=== PATIENT | female | born 1985 | race Caucasian/White ===

== ENCOUNTER 2016-11-18 10:00 | Inpatient (IN) | payer BC ==
[2016-11-18] MEDS ORDERED: Nalbuphine 20 MG/1 ML Amp IVPUSH PRN (14:46)
[2016-11-18] MEDS ORDERED: Ondansetron 4 MG/2 ML SDV IVPUSH PRN (14:46)
[2016-11-18] MEDS ORDERED: Lidocaine 1% 50 ML MDV INJECT ONE (14:46)
[2016-11-18] MEDS ORDERED: Sodium Chloride 0.9% 10 ML Syringe FLUSH PRN (14:46)
[2016-11-18] MEDS ORDERED: Oxytocin/Lactated Ringers 10 UNIT/1,000 ML BAG IV SCH ×2 (15:00)
[2016-11-18] MEDS: Misoprostol 25 MCG (1/4 of 100 MCG) Tab VAG SCH ×3 (15:28→21:54)
[2016-11-18] MEDS ORDERED: Ampicillin 2 GM in Sodium Chloride 0.9% 100 ML IV ONE (15:30)
--- NOTE | 2016-11-18 17:56 | PCM.LDHP ---
L&D History of Present Illness - General Date of Service: 11/18/16 Admit Problem/Dx: Patient Status Order with Admit Dx/Problem 11/18/16 14:46 Patient Status [ADT] Routine Admission Diagnosis/Problem Admission Diagnosis/Problem Source of Information: Patient, Other History Limitations: Reports: No Limitations - History of Present Illness Introduction:: History of present illness: Mila is a 30-year-old 1 para 0000 white female admitted from clinic for induction of labor. On 11/12/16 patient began complaining of increased swelling in her hands, feet and face along with right upper quadrant pain. Her blood pressures were borderline in the 130s/70s with 1 + protein in her urine. On 11/13/16, patient continued to complain of RUQ pain, BP 134/90, uric acid 6.2, 1+ protein, and reactive NST. Over the past weekend, she has complained of on and off headaches and blood pressures in the 140s/90s at home. She came into L&D and had her BP checked and did a 24-hour urine protein, which was negative. In the clinic today on 11/18/16, her BPs were in the 140s/80s, and she reports her RUQ pain has worsened to a 6 and is more sharp and stabbing in nature. 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 Last menstrual period was definite onset of 03/03/2016. Ultrasounds occurred at 9-1 weeks, 19-1 weeks, and 21-1 weeks, placing her at an JILL of 12/08/16 based on her last menstrual period. 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 Menses occur monthly every 26 days, with menarche occurring at age 14. course: First care visit on 05/05/16. Baby has been active and fundal height has been appropriate. Pre- weight was 146 lbs and current weight is 187, a gain of 41 lbs. Group B strep screen positive. Laboratory testing: Blood type AB positive. Antibody screen negative. Initial HGB 13.7 with platelets at 206,000. Rubella immune and RPR nonreactive. Urine showed mixed michell suggestive of contamination. Hepatitis B surface antigen and HIV assays negative. Chlamydia and gonorrhea screens were negative. Second trimester labs showed a HGB of 12.6 and platelet count of 149,000. One hour GTT was 88. Third trimester labs performed on 11/12/16 showed a HGB of 12.5, platelet count of 178,000, and positive Group B strep. Allergies: 1. Sulfa-nausea Medications: 1. tablets Past medical history: 1. induced hypertension (PIH) Past surgical history: 1. Breast reduction 10/2015 2. Colposcopy 2010-negative Family history: Significant for a brother with scoliosis. Social history: Patient is . 's name is Mario King. Lives in [place], [place]. Occasionally used alcohol before . No tobacco or illicit drug usage. Review of systems: Skin: No rashes Heart: no chest pain Lungs: no shortness of breath or cough Breasts: normal changes Abdomen: Reports right upper quadrant pain GI: no constipation or diarrhea Gu: no dysuria Musculoskeletal: swelling in distal extremities Neurologic: headaches over the past weekend, no vision changes Physical exam: Skin: no rashes HEENT: no lymphadenopathy Heart: normal rate and rhythm, no murmurs Lungs: clear to auscultation, good chest wall expansion Breast: deferred Abdomen: protuberant with , tenderness to palpation of RUQ below ribs in area of liver Cervix: 1+/80%/soft/-3 Extremities and neurological: 1+ edema, 3+ patellar reflexes - Related Data Allergies/Adverse Reactions: Allergies Allergy/AdvReac Type Severity Reaction Status Date / Time Sulfa (Sulfonamide Allergy Nausea Verified 11/18/16 16:47 Antibiotics) Home Medications: Home Meds Pnv No.122/Iron/Folic Acid [ Multi Tablet] 1 each PO DAILY 11/18/16 [ History] Past Medical History NETWORK SYSTEMS CONSULTANT History: Reports: , Other (See Below) Other OB/BYN History: 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 - Past Surgical History Female Surgical History: Reports: Breast Reduction, Other (See Below) Other Female Surgeries/Procedures: Colposcopy Social & Family History - Family History Family Medical History: Noncontributory - Tobacco Use Smoking Status *Q: Never Smoker Second Hand Smoke Exposure: No - Caffeine Use Caffeine Use: Reports: None - Recreational Drug Use Recreational Drug Use: No H&P Review of Systems - Review of Systems: Review Of Systems: See Below L&D Exam - Exam Exam: See Below - Vital Signs Vital Signs: Last Vital Signs Temp 98.7 F 11/18/16 14:35 Pulse 75 11/18/16 14:35 Resp 18 11/18/16 14:35 BP 143/89 H 11/18/16 14:35 Pulse Ox 100 11/18/16 14:35 Weight: 184 lb 12.8 oz - Patient Data Lab Results Last 24 hrs: Laboratory Results - last 24 hr 11/18/16 11/18/16 11/18/16 Range/Units 13:18 15:06 15:06 WBC 8.66 (3.98-10.04) K/mm3 RBC 4.23 (3.98-5.22) M/mm3 Hgb 12.5 (11.2-15.7) gm/L Hct 36.5 (34.1-44.9) % MCV 86.3 (79.4-94.8) fl MCH 29.6 (25.6-32.2) pg MCHC 34.2 (32.2-35.5) g/dl RDW Std Deviation 38.9 (36.4-46.3) fL Plt Count 146 L (182-369) K/mm3 MPV 11.9 (9.4-12.3) fl Neut % (Auto) 79.2 H (34.0-71.1) % Lymph % (Auto) 16.5 L (19.3-51.7) % [place] % (Auto) 3.8 L (4.7-12.5) % Eos % (Auto) 0.2 L (0.7-5.8) Baso % (Auto) 0.1 (0.1-1.2) % Neut # (Auto) 6.85 H (1.56-6.13) K/mm3 Lymph # (Auto) 1.43 (1.18-3.74) K/mm3 [place] # (Auto) 0.33 (0.24-0.36) K/mm3 Eos # (Auto) 0.02 L (0.04-0.36) K/mm3 Baso # (Auto) 0.01 (0.01-0.08) K/mm3 BUN 16 (7-18) mg/dL Creatinine 1.0 (0.55-1.02) mg/dL Est Cr Clr Drug Dosing 68.67 mL/min Estimated GFR (MDRD) > 60 (>60) mL/min Uric Acid 6.7 H (2.6-6.0) mg/dL AST 25 (15-37) U/L ALT 26 (14-59) U/L Lactate Dehydrogenase 195 (81-234) U/L Urine Color Yellow (Yellow) Urine Appearance Clear (Clear) Urine pH 6.0 (5.0-8.0) Ur Specific [place] 1.020 (1.005-1.030) Urine Protein Negative (Negative) Urine Glucose (UA) Negative (Negative) Urine Ketones Negative (Negative) Urine Occult Blood Negative (Negative) Urine Nitrite Negative (Negative) Urine Bilirubin Negative (Negative) Urine Urobilinogen 0.2 (0.2-1.0) Ur Leukocyte Esterase Negative (Negative) Result Diagrams: 11/18/16 15:06 11/18/16 15:06 Problem List Initiated/Reviewed/Updated: Yes Orders Last 24hrs: Active Orders 24 hr Category Date Time Status Patient Status [ADT] Routine ADT 11/18/16 14:46 Active Activity as Tolerated [RC] PFP Care 11/18/16 14:46 Active Antiembolic Devices [RC] .Routine Care 11/18/16 14:48 Active Communication Order [RC] ASDIRECTED Care 11/18/16 14:46 Active Communication Order [RC] ASDIRECTED Care 11/18/16 14:46 Active Communication Order [RC] ASDIRECTED Care 11/18/16 14:46 Active Communication Order [RC] ASDIRECTED Care 11/18/16 14:46 Active Notify Provider [RC] ASDIRECTED Care 11/18/16 14:46 Active Notify Provider [RC] ASDIRECTED Care 11/18/16 14:51 Active Notify Provider [RC] PFP Care 11/18/16 14:46 Active Notify Provider [RC] PRN Care 11/18/16 14:46 Active Peripheral IV Care [RC] . DIRECTED Care 11/18/16 14:46 Active VTE/DVT Education [RC] Care 11/18/16 14:48 Active Vital Signs [RC] Care 11/18/16 14:46 Active Regular Diet [DIET] Diet 11/18/16 Lunch Active Ampicillin 1 gm Med 11/18/16 19:30 Active Sodium Chloride 0.9% [Normal Saline] 100 ml IV Q4H Lactated Ringers [Ringers, Lactated] 1,000 ml Med 11/18/16 15:00 Active IV ASDIRECTED Misoprostol [Cytotec] Med 11/18/16 15:00 Active 25 mcg VAG Q3H Nalbuphine [Nubain] Med 11/18/16 14:46 Active 10 mg IVPUSH Q2H PRN Ondansetron [Zofran] Med 11/18/16 14:46 Active 4 mg IVPUSH Q4H PRN Oxytocin/Lactated Ringers [Pitocin in LR 10 Units/1,000 Med 11/18/16 15:00 Active ML] 10 unit in 1,000 ml IV .CONTINUOUS Oxytocin/Lactated Ringers [Pitocin in LR 10 Units/1,000 Med 11/18/16 15:00 Active ML] 10 unit in 1,000 ml IV TITRATE Sodium Chloride 0.9% [Saline Flush] Med 11/18/16 14:46 Active 10 ml FLUSH ASDIRECTED PRN DVT/VTE Prophylaxis Reflex [OM.PC] Routine Ot 11/18/16 14:48 Ordered Electronic Heart Tones Ext w TOCO [WOMSER] Ot 11/18/16 14:46 Ordered Routine Electronic Heart Tones Internal [WOMSER] Per Unit Ot 11/18/16 14:46 Ordered Routine PIH Panel [OM.PC] Stat [facility] 11/18/16 14:46 Ordered Peripheral IV Insertion Adult [OM.PC] Routine Ot 11/18/16 14:46 Ordered Peripheral IV Insertion Adult [OM.PC] Routine Ot 11/18/16 14:46 Ordered Resuscitation Status Routine Resus Stat 11/18/16 14:46 Ordered Medication Orders Ampicillin Sodium 1 gm/ Sodium (Chloride) 100 mls @ 200 mls/hr IV Q4H AAKASH Lactated Ringer's (Ringers, Lactated) 1,000 mls @ 100 mls/hr IV ASDIRECTED AAKASH Oxytocin/Lactated Ringer's (Pitocin In Lr 10 Units/1,000 Ml) 10 unit in 1,000 mls @ 500 mls/hr IV .CONTINUOUS AAKASH Oxytocin/Lactated Ringer's (Pitocin In Lr 10 Units/1,000 Ml) 10 unit in 1,000 mls @ 12 mls/hr IV TITRATE AAKASH; 2 MUNITS/MIN PRN Reason: Protocol Misoprostol (Cytotec) 25 mcg VAG Q3H AAKASH Stop: 11/18/16 21:01 Last Admin: 11/18/16 15:28 Dose: 25 mcg Nalbuphine HCl (Nubain) 10 mg IVPUSH Q2H PRN PRN Reason: Pain (moderate 4-6) Ondansetron HCl (Zofran) 4 mg IVPUSH Q4H PRN PRN Reason: Nausea/Vomiting Sodium Chloride (Saline Flush) 10 ml FLUSH ASDIRECTED PRN PRN Reason: Keep Vein Open Assessment/Plan Comment:: Assessment: 1. 30-year-old female at 37-1 week with an JILL of 12/08/16 based on her LMP admitted for induction of labor from clinic due to -induced hypertension. 2. Group B strep positive Plan: 1. Induction of labor with oxytocin and cervical ripening with cytotec 2. Ampicillin for Group B strep 3. Patient plans to bottle feed 4. Monitor BPs and signs of worsening RUQ pain, headaches, vision changes 5. PIH panel ordered
[2016-11-18] MEDS: Ampicillin 1 GM in Sodium Chloride 0.9% 100 ML IV SCH ×2 (19:42→23:40)
[2016-11-18] MEDS ORDERED: fentaNYL 100 MCG/2 ML SDV EPIDUR PRN (21:54)
[2016-11-18] MEDS ORDERED: diphenhydrAMINE 50 MG/ML SDV IVPUSH PRN (21:54)
[2016-11-18] MEDS ORDERED: ePHEDrine 50 MG/ML SDV IVPUSH PRN (21:54)
[2016-11-18] MEDS ORDERED: Bupivacaine/fentaNYL/NS 100 ML Bag EPIDUR SCH (22:00)
--- NOTE | 2016-11-18 23:00 | PCM.PREANE ---
Preanesthetic Assessment - Anesthesia/Transfusion/Family Hx Anesthesia History: Prior Anesthesia Without Reaction Family History of Anesthesia Reaction: No Transfusion History: No Prior Transfusion(s) - Review of Systems General: No Symptoms Pulmonary: No Symptoms Cardiovascular: No Symptoms Gastrointestinal: No Symptoms Neurological: No Symptoms Other: Reports: None - Physical Assessment Pulse: 64 O2 Sat by Pulse Oximetry: 100 Respiratory Rate: 18 Blood Pressure: 151/88 Vital Signs: Last Vital Signs Temp 98.7 F 11/18/16 14:35 Pulse 75 11/18/16 14:35 Resp 18 11/18/16 14:35 BP 143/89 H 11/18/16 14:35 Pulse Ox 100 11/18/16 14:35 Height: 5 ft 3 in Weight: 83.824 kg ASA Class: 2 Mental Status: Alert & Oriented x3 Airway Class: Mallampati = 1 Dentition: Reports: Normal Dentition Thyro-Mental Finger Breadths: 3 Mouth Opening Finger Breadths: 3 ROM/Head Extension: Full Lungs: Clear to Auscultation, Normal Respiratory Effort Cardiovascular: Regular Rate, Regular Rhythm - Lab Values: Laboratory Last Values WBC 8.66 K/mm3 (3.98-10.04) 11/18/16 15:06 RBC 4.23 M/mm3 (3.98-5.22) 11/18/16 15:06 Hgb 12.5 gm/L (11.2-15.7) 11/18/16 15:06 Hct 36.5 % (34.1-44.9) 11/18/16 15:06 MCV 86.3 fl (79.4-94.8) 11/18/16 15:06 MCH 29.6 pg (25.6-32.2) 11/18/16 15:06 MCHC 34.2 g/dl (32.2-35.5) 11/18/16 15:06 RDW Std Deviation 38.9 fL (36.4-46.3) 11/18/16 15:06 Plt Count 146 K/mm3 (182-369) L 11/18/16 15:06 MPV 11.9 fl (9.4-12.3) 11/18/16 15:06 Neut % (Auto) 79.2 % (34.0-71.1) H 11/18/16 15:06 Lymph % (Auto) 16.5 % (19.3-51.7) L 11/18/16 15:06 [place] % (Auto) 3.8 % (4.7-12.5) L 11/18/16 15:06 Eos % (Auto) 0.2 (0.7-5.8) L 11/18/16 15:06 Baso % (Auto) 0.1 % (0.1-1.2) 11/18/16 15:06 Neut # (Auto) 6.85 K/mm3 (1.56-6.13) H 11/18/16 15:06 Lymph # (Auto) 1.43 K/mm3 (1.18-3.74) 11/18/16 15:06 [place] # (Auto) 0.33 K/mm3 (0.24-0.36) 11/18/16 15:06 Eos # (Auto) 0.02 K/mm3 (0.04-0.36) L 11/18/16 15:06 Baso # (Auto) 0.01 K/mm3 (0.01-0.08) 11/18/16 15:06 BUN 16 mg/dL (7-18) 11/18/16 15:06 Creatinine 1.0 mg/dL (0.55-1.02) 11/18/16 15:06 Est Cr Clr Drug Dosing 68.67 mL/min 11/18/16 15:06 Estimated GFR (MDRD) > 60 mL/min (>60) 11/18/16 15:06 Uric Acid 6.7 mg/dL (2.6-6.0) H 11/18/16 15:06 AST 25 U/L (15-37) 11/18/16 15:06 ALT 26 U/L (14-59) 11/18/16 15:06 Lactate Dehydrogenase 195 U/L (81-234) 11/18/16 15:06 Urine Color Yellow (Yellow) 11/18/16 13:18 Urine Appearance Clear (Clear) 11/18/16 13:18 Urine pH 6.0 (5.0-8.0) 11/18/16 13:18 Ur Specific [place] 1.020 (1.005-1.030) 11/18/16 13:18 Urine Protein Negative (Negative) 11/18/16 13:18 Urine Glucose (UA) Negative (Negative) 11/18/16 13:18 Urine Ketones Negative (Negative) 11/18/16 13:18 Urine Occult Blood Negative (Negative) 11/18/16 13:18 Urine Nitrite Negative (Negative) 11/18/16 13:18 Urine Bilirubin Negative (Negative) 11/18/16 13:18 Urine Urobilinogen 0.2 (0.2-1.0) 11/18/16 13:18 Ur Leukocyte Esterase Negative (Negative) 11/18/16 13:18 - Allergies Allergies/Adverse Reactions: Allergies Allergy/AdvReac Type Severity Reaction Status Date / Time Sulfa (Sulfonamide Allergy Nausea Verified 11/18/16 16:47 Antibiotics) - Blood Blood Available: No - Acknowledgements Anesthesia Type Planned: Epidural Pt an Appropriate Candidate for the Planned Anesthesia: Yes Alternatives and Risks of Anesthesia Discussed w Pt/Guardian: Yes Pt/Guardian Understands and Agrees with Anesthesia Plan: Yes PreAnesthesia Questionnaire Cardiovascular History: Reports: None Respiratory History: Reports: None Gastrointestinal History: Reports: GERD (with preg) 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: , Other (See Below) : 1 Para: 0 Other OB/BYN History: 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 Psychiatric History: Reports: None Oncologic (Cancer) History: Reports: None - Past Surgical History Female Surgical History: Reports: Breast Reduction, Other (See Below) Other Female Surgeries/Procedures: Colposcopy - SUBSTANCE USE Smoking Status *Q: Never Smoker Tobacco Use Within Last Twelve Months: No Second Hand Smoke Exposure: No Days Per Week of Alcohol Use: 0 Recreational Drug Use History: No - HOME MEDS Home Medications: Home Meds Pnv No.122/Iron/Folic Acid [ Multi Tablet] 1 each PO DAILY 11/18/16 [ History] - CURRENT (IN HOUSE) MEDS Current Meds: Current Medications Diphenhydramine HCl (Benadryl) 25 mg IVPUSH Q6H PRN PRN Reason: pruritis Ephedrine Sulfate (Ephedrine Sulfate) 5 mg IVPUSH ASDIRECTED PRN PRN Reason: Hypotension Fentanyl (Sublimaze) 100 mcg EPIDUR Q3H PRN PRN Reason: Pain Fentanyl/Bupivacaine HCl (Fentanyl/Bupivacaine/Ns 2 Mcg-0.125% 100 Ml) 100 ml EPIDUR ASDIRECTED AAKASH Ampicillin Sodium 1 gm/ Sodium (Chloride) 100 mls @ 200 mls/hr IV Q4H [facility] Last Admin: 11/18/16 19:42 Dose: 200 mls/hr Lactated Ringer's (Ringers, Lactated) 1,000 mls @ 100 mls/hr IV ASDIRECTED AAKASH Oxytocin/Lactated Ringer's (Pitocin In Lr 10 Units/1,000 Ml) 10 unit in 1,000 mls @ 500 mls/hr IV .CONTINUOUS AAKASH Oxytocin/Lactated Ringer's (Pitocin In Lr 10 Units/1,000 Ml) 10 unit in 1,000 mls @ 12 mls/hr IV TITRATE AAKASH; 2 MUNITS/MIN PRN Reason: Protocol Nalbuphine HCl (Nubain) 10 mg IVPUSH Q2H PRN PRN Reason: Pain (moderate 4-6) Ondansetron HCl (Zofran) 4 mg IVPUSH Q4H PRN PRN Reason: Nausea/Vomiting Sodium Chloride (Saline Flush) 10 ml FLUSH ASDIRECTED PRN PRN Reason: Keep Vein Open Discontinued Medications Ampicillin Sodium 2 gm/ Sodium (Chloride) 100 mls @ 200 mls/hr IV ONETIME ONE Stop: 11/18/16 15:59 Last Admin: 11/18/16 15:27 Dose: 200 mls/hr Lidocaine HCl (Xylocaine 1%) 20 ml INJECT ONETIME ONE Stop: 11/18/16 14:47 Misoprostol (Cytotec) 25 mcg VAG Q3H [facility] Stop: 11/18/16 21:01 Last Admin: 11/18/16 21:54 Dose: Not Given
[2016-11-19] MEDS: Lactated Ringers 1,000 ML IV SCH ×3 (01:15→06:42)
[2016-11-19] MEDS: Ampicillin 1 GM in Sodium Chloride 0.9% 100 ML IV SCH ×3 (03:48→13:18)
[2016-11-19] MEDS ORDERED: Bupivacaine 0.5% 30 ML SDV ONE (08:32)
--- NOTE | 2016-11-19 08:41 | PCM.SN ---
- Free Text/Narrative Note: Giancarlo is 30-year-old 1 para 0 who is at 37-2/7 weeks gestational age , admitted yesterday for induction of labor because of preeclampsia. This morning patient began having late decelerations on a regular basis. This despite contractions, objectively evaluated with an intrauterine pressure catheter, that were less than optimal. She is on Pitocin 5 mm units per minute. Cervix is 4+ centimeters, 90% effaced, 0 station, -1, soft and anterior. Intrauterine pressure transducer was placed as well as a scalp electrode. Decision made to proceed with primary section to affect delivery because of nonreassuring heart tones which is suspected to be due to uteroplacental insufficiency. In light of the fact that she has many hours of labor left to go to achieve complete cervical dilation and delivery feel that her by section is warranted. The procedure, risks, benefits, follow-up and alternatives of care discussed in detail the patient and her . They appear to understand and wish to proceed. Consent is signed.
[2016-11-19] MEDS ORDERED: Metoclopramide 10 MG/2 ML SDV IVPUSH ONE ×2 (08:42→21:55)
[2016-11-19] MEDS ORDERED: ceFAZolin 2 GM in Premix Bag 1 BAG IV ONE (08:42)
[2016-11-19] MEDS ORDERED: Citric Acid/Sodium Citrate Solution 30 ML Cup PO ONE (08:42)
[2016-11-19] MEDS ORDERED: Ondansetron 4 MG/2 ML SDV ONE (08:53)
[2016-11-19] MEDS ORDERED: Oxytocin 10 Units/1 ML SDV ONE (08:53)
[2016-11-19] MEDS ORDERED: Sodium Bicarbonate 8.4% 50 MEQ/50 ML SDV ONE (08:54)
[2016-11-19] MEDS ORDERED: ceFAZolin 1 GM Vial ONE (08:54)
[2016-11-19] MEDS ORDERED: Lidocaine 2% with EPINEPHrine 1:200,000 20 ML SDV ONE (08:54)
[2016-11-19] MEDS ORDERED: Morphine PF 10 MG/10 ML SDV ONE (09:34)
[2016-11-19] MEDS ORDERED: Meperidine PF 50 MG/ML Syringe ONE (09:36)
[2016-11-19] MEDS ORDERED: Ketorolac 30 MG/ML SDV ONE (09:49)
--- NOTE | 2016-11-19 10:00 | PCM.POSTAN ---
POST ANESTHESIA ASSESSMENT - MENTAL STATUS Mental Status: Alert, Oriented - VITAL SIGNS Pulse Rate: 76 SaO2: 98 Resp Rate: 16 Blood Pressure: 117/77 Temperature: 37.2 C - RESPIRATORY Respiratory Status: Respiratory Rate WNL, Airway Patent, O2 Saturation Stable - CARDIOVASCULAR CV Status: Pulse Rate WNL, Blood Pressure Stable - GASTROINTESTINAL GI Status: No Symptoms - PAIN Pain Score: 0 - POST OP HYDRATION Hydration Status: Adequate & Stable
--- NOTE | 2016-11-19 10:00 | PCM.OPNOTE ---
- General Post-Op/Procedure Note Date of Surgery/Procedure: 11/19/16 Operative Procedure(s): Primary lower uterine segment transverse section through Pfannenstiel skin incision Findings: Uterus tubes and ovaries consistent with term pregnancynormal in appearance. Baby in vertex presentation, amniotic fluid clear. Placenta looked normal the umbilical cord had 3 vessels. Cervix is approximately 4+ dilated Pre Op Diagnosis: 1. 37-2/7 week intrauterine . 2. Preeclampsia. 3. Nonreassuring heart tones Post-Op Diagnosis: Same with delivery of a viable, forrest, 5 lbs. 12 oz. female with Apgars of 8 and 9 at 0918 hrs. Anesthesia Technique: Epidural Other Anesthesia Type: Marcaine 0.5%20 mL local Primary Surgeon: Yon Mendez Secondary Surgeon: Pedro Deshpande Anesthesia Provider: Jose Baugh Fluid Replacement, Intraop: 800 Output, Urine Amount: 45 EBL in mLs: 200 Drain/Tube Comments:: Indwelling bladder catheter Complications: None Condition: Good Free Text/Narrative:: surgery duration: 30 minutes Procedure: Patient was transferred the room and placed in a sitting position. Patient already had an epidural in place. This was bolstered anesthetic effect. After confirmation of adequate anesthesia patient was placed in a supine position with a wedge under her right side to facilitate left lateral positioning. The patient was prepped and draped in usual fashion, [place] catheter was already placed . The anesthetic was checked and found to be adequate. The Pfannenstiel skin incision was then made carried down to skin subcutaneous and fascial layers. The fascia was then undermined superiorly and inferiorly to allow for adequate operating room the recti muscles midline and preperitoneal fat was bluntly dissected. Peritoneal cavity was entered longitudinally. The vesicouterine peritoneum was then incised transversely and bladder flap was developed. Myometrium was incised transversely to the level of the amniotic sac. This incision was extended bilaterally in a blunt fashion. The amniotic sac was then ruptured resulting clear amniotic fluid. A hand is placed and low uterine segment and the baby's head was brought forth through the incision. The baby was completely delivered using fundal pressure in a routine fashion. The nose and mouth were bulb suctioned. Babys cord was clamped x2 cut and baby was handed off to attending industrial millwright Dr Stone. Placenta was expressed after cord blood was obtained. Uterus was then exteriorized to allow for easier closure. The cervix was assessed and found to be dilated adequately to allow egress of blood. The uterus was closed in 2 layers. The first layer a running locked suture of 0 Monocryl, the second layer a running locked vertical mattress suture of 0 Monocryl. [id number] suture was placed at the left incision to control 1 bleeder. Hemostasis confirmed at this time. Sponge instrument needle counts are correct. The uterus was returned to the abdominal cavity and lateral gutters were cleared of blood. Once again sponge needle counts are correct. The anterior abdominal wall was closed with a #1 PDS suture from angle to angle. The subcutaneous area was found to be free of any bleeders. Skin was closed with a running subcuticular stitch of 3-0 Monocryl in a vertical mattress suture fashion using a Ousmane needle. Prineo mesh/glue was then applied to further approximate the incision. It should be noted that patient received 2 g of Ancef preoperatively for infection prophylaxis and had Pitocin infused after delivery of the placenta to facilitate uterine contraction. She also had sequential compression stockings in place for DVT prophylaxis. Patient was discharged from the operating room in satisfactory condition.
[2016-11-19] MEDS ORDERED: Ondansetron 4 MG/2 ML SDV IVPUSH PRN (10:02)
[2016-11-19] MEDS ORDERED: Meperidine PF 50 MG/ML Syringe IVPUSH PRN (10:02)
[2016-11-19] MEDS ORDERED: fentaNYL 100 MCG/2 ML SDV IVPUSH PRN (10:02)
[2016-11-19] MEDS ORDERED: Acetaminophen/oxyCODONE 325-5 MG Tab PO PRN (12:13)
[2016-11-19] MEDS ORDERED: ePHEDrine 50 MG/ML SDV IVPUSH PRN (12:13)
[2016-11-19] MEDS ORDERED: Lactated Ringers 1,000 ML IV SCH (12:13)
[2016-11-19] MEDS ORDERED: Ondansetron 4 MG/2 ML SDV IV PRN (12:13)
[2016-11-19] MEDS ORDERED: Naloxone 0.4 MG/ML SDV IVPUSH PRN (12:13)
[2016-11-19] MEDS ORDERED: Lanolin 100% Cream 7 GM Tube TOP PRN (12:13)
[2016-11-19] MEDS ORDERED: Magnesium Sulfate/Water 100 ML ONE (12:42)
[2016-11-19] MEDS ORDERED: Magnesium Sulfate/Water 40 GM/1,000 ML BAG ONE (12:43)
[2016-11-19] MEDS ORDERED: Magnesium Sulfate/Water 4 GM in Premix Bag 1 BAG IV ONE (13:00)
[2016-11-19] MEDS: Magnesium Sulfate/Water 40 GM/1,000 ML BAG IV SCH (13:10)
[2016-11-19] MEDS: Labetalol 100 MG Tab PO SCH ×2 (13:15→21:13)
[2016-11-19] MEDS: Simethicone 80 MG Tab.Chew PO SCH ×3 (13:16→22:31)
[2016-11-19] MEDS: diphenhydrAMINE 50 MG/ML SDV IVPUSH PRN ×2 (15:29→21:16)
[2016-11-19] MEDS: Ibuprofen 800 MG Tab PO SCH (17:17)
[2016-11-19] MEDS ORDERED: Bupivacaine 0.25% 10 ML SDV ONE (22:22)
[2016-11-20] MEDS: Ibuprofen 800 MG Tab PO SCH ×3 (01:04→19:40)
[2016-11-20] MEDS ORDERED: Lactated Ringers 1,000 ML ONE (01:59)
--- NOTE | 2016-11-20 07:45 | PCM48HPAN ---
Post Anesthesia Note - EVALUATION WITHIN 48HRS OF ANESTHETIC Vital Signs in Normal Range: Yes Patient Participated in Evaluation: Yes Respiratory Function Stable: Yes Airway Patent: Yes Cardiovascular Function Stable: Yes Hydration Status Stable: Yes Pain Control Satisfactory: Yes Nausea and Vomiting Control Satisfactory: Yes Mental Status Recovered: Yes
[2016-11-20] MEDS: Simethicone 80 MG Tab.Chew PO SCH ×4 (09:42→21:03)
[2016-11-20] MEDS: Labetalol 100 MG Tab PO SCH ×2 (09:44→21:01)
[2016-11-20] MEDS: Magnesium Sulfate/Water 40 GM/1,000 ML BAG IV SCH (10:39)
[2016-11-20] MEDS: Lactated Ringers 1,000 ML IV SCH (13:07)
--- NOTE | 2016-11-20 15:16 | PCM.SN ---
- Free Text/Narrative Note: note: Subjective: - Appropriate amount of lochia - Voiding and ambulating well - No headaches, (+) dizziness - Remains on labetalol and magnesium - Total intake 1720, output 2450 Objective: - VS: T 98.2, BP 121/87, P 75 - Lungs: clear breath sounds all lung escalona - Cardiovascular: regular rate and rhythm, no murmurs appreciated - Abdomen: uterine fundus located at umbilicus, firm and nontender, dressing and incision clean, dry, and intact - Extremities: 1+ edema, hyperactive DTRs 3+ at patella, no calf pain or tenderness, negative clonus, wearing SCDs - Labs: WBC 9.06, HGB 10.8, PLT 115,000, Magnesium 6.5 Assessment: - 30-year-old 1, now para 1001 s/p POD #1 who is doing well. - Currently bottle feeding - Remains on magnesium sulfate, no toxicity; (+) diuresis, BP stable on labetalol Plan: - Routine care - Continue magnesium sulfate - Continue to monitor intake and output - Continue SCDs
[2016-11-20] MEDS ORDERED: Bisacodyl 10 MG Supp RECTAL PRN (16:06)
[2016-11-20] MEDS: Docusate Sodium 100 MG Cap PO PRN (21:03)
[2016-11-21] MEDS: Lactated Ringers 1,000 ML IV SCH ×2 (01:22→13:09)
[2016-11-21] MEDS: Ibuprofen 800 MG Tab PO SCH ×3 (03:43→18:53)
[2016-11-21] MEDS: Labetalol 100 MG Tab PO SCH ×2 (08:07→21:00)
[2016-11-21] MEDS: Simethicone 80 MG Tab.Chew PO SCH ×4 (08:07→23:34)
--- NOTE | 2016-11-21 09:07 | PCM.SN ---
- Free Text/Narrative Note: note Subjective: - Patient overall doing well and feels that she is improving from yesterday - Patient is ambulating and was able to shower without difficulty, shortness of breath or dizziness this morning - Pain is well controlled on medications - Tolerating regular diet without difficulty - Voiding without difficulty and passing flatus - Bottlefeeding infant with having some difficulty with spitting up small amount of formula Objective: VS T 36.8 HR 70 BP 122/90 Last 24 in 4020 mL Last 24 out 1200 mL General: No acute distress, well-appearing Heart: Regular rate and rhythm, no murmurs, rubs or gallops Lungs: Clear to auscultation bilaterally Abdomen: Soft, nondistended, minimal appropriate tenderness, fundus 1 fingerbreadth below umbilicus, incision healing well with glue in place, clean dry and intact Extremities: 3+ pitting edema on feet bilaterally to lower shins, 1+ edema on shins to knees, 3+ DTRs bilateral at knees, no calf pain or tenderness, SCDs are in place Magnesium level: 6.2 Assessment: - 30-year-old 1, now para 1001 s/p POD #2 who is doing well and improving. - Currently bottle feeding - Remains on magnesium sulfate, no toxicity; continues to have good diuresis, BP stable on labetalol Plan: - Routine care - Continue magnesium sulfate, will recently assess later today - Continue to monitor intake and output - Continue SCDs - Anticipate discharge on postop day #3 or 4 Bryon Powell M.D. 9:16 AM 11/21/2016
[2016-11-21] MEDS: Magnesium Sulfate/Water 40 GM/1,000 ML BAG IV SCH (11:28)
--- NOTE | 2016-11-21 12:36 | PCM.SN ---
- Free Text/Narrative Note: Magnesium progress note Subjective: - Patient reports new onset mild headache this morning after she ate some ice cream. States it is getting better. Denies any vision changes or right upper quadrant pain. - Continues to be ambulating well without any problems, denies any dizziness with ambulation Objective: VS P 70 BP 143/107 RR 16 General: No acute distress, well-appearing Heart: Regular rate and rhythm, no murmurs, rubs or gallops. Lungs: Clear to auscultation bilaterally Extremities: 3+ pitting edema in feet 2 lotions, 3+ DTRs bilaterally at patella Magnesium level: 6.4 Assessment: 30-year-old G1 now P1001 status post section, postop day #2 with continued elevated blood pressures and reflexes on magnesium and labetalol Plan: - Continue on magnesium at this time. We'll continue to reassess for improvement in blood pressure and other signs of preeclampsia. Bryon Powell M.D. 12:31 PM 11/21/2016
--- NOTE | 2016-11-21 17:39 | PCM.SN ---
- Free Text/Narrative Note: Magnesium progress note Subjective: - Patient reports mild headache from this morning is resolved. Denies any vision changes or right upper quadrant pain. - Continues to be ambulating well without any problems, denies any dizziness with ambulation Objective: VS T 37.7 P 68 BP 122/90 RR 16 General: No acute distress, well-appearing Heart: Regular rate and rhythm, no murmurs, rubs or gallops. Lungs: Clear to auscultation bilaterally Extremities: 2+ pitting edema in feet to shins, 3+ DTRs bilaterally at patella unchanged from previous exams Magnesium level: 6.2 Assessment: 30-year-old G1 now P1001 status post section, postop day #2 with improved blood pressures and stable reflexes on magnesium and labetalol Plan: - Routine care - Discontinue magnesium at this time. Saline lock. Continue close monitoring of vitals and I/O Bryon Powell M.D. 4:36 PM 11/21/2016
[2016-11-21] MEDS ORDERED: Sodium Chloride 0.9% 10 ML Syringe FLUSH PRN (17:42)
[2016-11-22] MEDS: Ibuprofen 800 MG Tab PO SCH ×2 (04:00→08:09)
[2016-11-22] MEDS: Docusate Sodium 100 MG Cap PO PRN (05:07)
--- NOTE | 2016-11-22 05:30 | PCM.DCSUM1 ---
Discharge Summary - Hospital Course Brief History: Admitted for IOL for pre-ecclampsia 11-18-16. Cat 2 tracing and 4 cm so decision for 11-19-16. Some severe bps after. Started on magnesium through 11-21-16. By POD3 doing great, normal bps with some mild range. Decision to discharge home. - Discharge Data Discharge Date: 11/22/16 Discharge Disposition: Home, Self-Care 01 Condition: Good - Patient Summary/Data Operative Procedure(s) Performed: Primary lower uterine segment transverse section through Pfannenstiel skin incision Complications: none Hospital Course: Admitted for induction of labor. Progressed adequately but began having some late decelerations. Given only 4 cm and likely uteroplacental insufficiency decision for on 11-19-16. 3 hours postop began having worsening blood pressures so magnesium initiated. Eventually improved bps and UOP so magnesium discontinued on evening of 11-21-16. Stable after and decision to discharge home. - Patient Instructions Diet: Usual Diet as Tolerated Activity: No Strenuous Activities Driving: Do Not Drive Showering/Bathing: May Shower Wound/Incision Care: Keep Operative Site/Wound Site Clean and Dry, Change Dressing Daily, Do NOT Change Dressing Notify Provider of: Fever, Increased Pain, Swelling and Redness, Drainage, Nausea and/or Vomiting - Discharge Plan Home Medications: Home Meds Pnv No.122/Iron/Folic Acid [ Multi Tablet] 1 each PO DAILY 11/18/16 [ History] Referrals: Yon Mendez MD [Physician] - (Thursday or Thursday for blood pressure check.) - Discharge Summary/Plan Comment DC Time >30 min.: No - General Info Date of Service: 11/22/16 - Review of Systems General: Reports: No Symptoms HEENT: Reports: No Symptoms Pulmonary: Reports: No Symptoms Cardiovascular: Reports: No Symptoms Gastrointestinal: Reports: No Symptoms Genitourinary: Reports: No Symptoms Musculoskeletal: Reports: No Symptoms Skin: Reports: No Symptoms Neurological: Reports: No Symptoms Psychiatric: Reports: No Symptoms - Patient Data Vitals - Most Recent: Last Vital Signs Temp 37.3 C 11/22/16 00:45 Pulse 82 11/22/16 00:45 Resp 14 11/22/16 00:45 BP 124/73 11/22/16 00:45 Pulse Ox 96 11/22/16 00:45 Weight - Most Recent: 83.824 kg I&O - Last 24 hours: Intake & Output 11/21/16 11/21/16 11/22/16 14:59 22:59 06:59 Intake Total 1580 1300 Output Total 1500 Balance 1580 -200 Lab Results - Last 24 hrs: Laboratory Results - last 24 hr 11/21/16 11/21/16 Range/Units 05:05 11:10 Magnesium 6.2 H 6.4 H (1.8-2.4) mg/dl Med Orders - Current: Current Medications Bisacodyl (Dulcolax) 10 mg RECTAL Q8HR PRN PRN Reason: Constipation Diphenhydramine HCl (Benadryl) 25 mg IVPUSH Q6H PRN PRN Reason: Itching or Nausea Last Admin: 11/19/16 21:16 Dose: 25 mg Docusate Sodium (Colace) 100 mg PO Q12H PRN PRN Reason: Constipation Last Admin: 11/22/16 05:07 Dose: 100 mg Emollient Ointment (Lansinoh Hpa) 0 gm TOP ASDIRECTED PRN PRN Reason: Sore Nipples Ephedrine Sulfate (Ephedrine Sulfate) 5 mg IVPUSH SEECOMMENT PRN PRN Reason: Other Ibuprofen (Motrin) 800 mg PO Q8H [facility] Last Admin: 11/22/16 04:00 Dose: 800 mg Labetalol HCl (Normodyne) 100 mg PO BID [facility] Last Admin: 11/21/16 21:00 Dose: 100 mg Naloxone HCl (Narcan) 0.1 mg IVPUSH SEECOMMENT PRN PRN Reason: Respiratory Depression Ondansetron HCl (Zofran) 4 mg IV Q4H PRN PRN Reason: Nausea/Vomiting Last Admin: 11/19/16 13:01 Dose: 4 mg Oxycodone/Acetaminophen (Percocet 325-5 Mg) 2 tab PO Q4H PRN PRN Reason: Pain (moderate 4-6) Simethicone (Simethicone) 80 mg PO PCBED [facility] Last Admin: 11/21/16 23:34 Dose: 80 mg Sodium Chloride (Saline Flush) 10 ml FLUSH ASDIRECTED PRN PRN Reason: Keep Vein Open Discontinued Medications Bupivacaine HCl (Marcaine 0.5%) Confirm Administered Dose 30 ml .ROUTE .STK-MED ONE Stop: 11/19/16 08:33 Last Admin: 11/19/16 09:15 Dose: 20 ml Cefazolin Sodium (Ancef) Confirm Administered Dose 2 gm .ROUTE .STK-MED ONE Stop: 11/19/16 08:55 Citric Acid/Sodium Citrate (Bicitra Solution) 30 ml PO ONETIME ONE Stop: 11/19/16 08:43 Last Admin: 11/19/16 08:51 Dose: 30 ml Diphenhydramine HCl (Benadryl) 25 mg IVPUSH Q6H PRN PRN Reason: pruritis Ephedrine Sulfate (Ephedrine Sulfate) 5 mg IVPUSH ASDIRECTED PRN PRN Reason: Hypotension Fentanyl (Sublimaze) 100 mcg EPIDUR Q3H PRN PRN Reason: Pain Last Admin: 11/19/16 01:59 Dose: 100 mcg Fentanyl (Sublimaze) 50 mcg IVPUSH Q5M PRN PRN Reason: Pain Stop: 11/19/16 12:30 Fentanyl/Bupivacaine HCl (Fentanyl/Bupivacaine/Ns 2 Mcg-0.125% 100 Ml) 100 ml EPIDUR ASDIRECTED AAKASH Last Admin: 11/19/16 01:59 Dose: 100 ml Ampicillin Sodium 2 gm/ Sodium (Chloride) 100 mls @ 200 mls/hr IV ONETIME ONE Stop: 11/18/16 15:59 Last Admin: 11/18/16 15:27 Dose: 200 mls/hr Ampicillin Sodium 1 gm/ Sodium (Chloride) 100 mls @ 200 mls/hr IV Q4H [facility] Last Admin: 11/19/16 13:18 Dose: Not Given Lactated Ringer's (Ringers, Lactated) 1,000 mls @ 100 mls/hr IV ASDIRECTED AAKASH Last Admin: 11/19/16 06:42 Dose: 100 mls/hr Oxytocin/Lactated Ringer's (Pitocin In Lr 10 Units/1,000 Ml) 10 unit in 1,000 mls @ 500 mls/hr IV .CONTINUOUS AAKASH Oxytocin/Lactated Ringer's (Pitocin In Lr 10 Units/1,000 Ml) 10 unit in 1,000 mls @ 12 mls/hr IV TITRATE AAKASH; 2 MUNITS/MIN PRN Reason: Protocol Last Titration: 11/19/16 06:00 Dose: 5 munits/min, 30 mls/hr Cefazolin Sodium/Dextrose 2 gm (/ Premix) 50 mls @ 100 mls/hr IV ONETIME ONE Stop: 11/19/16 09:11 Last Admin: 11/19/16 13:19 Dose: Not Given Lactated Ringer's (Ringers, Lactated) 1,000 mls @ 125 [facility] Stop: 11/19/16 20:12 Last Admin: 11/19/16 12:50 Dose: 125 mls/hr Magnesium Sulfate (Magnesium Sulfate 4 Gm In Water 100 Ml) Confirm Administered Dose 100 mls @ as directed .ROUTE .[facility] ONE Stop: 11/19/16 12:43 Last Admin: 11/19/16 15:14 Dose: Not Given Magnesium Sulfate (Magnesium Sulfate 40 Gm In Water 1000 Ml) Confirm Administered Dose 40 gm in 1,000 mls @ as directed .ROUTE .[facility] ONE Stop: 11/19/16 12:44 Last Admin: 11/19/16 13:16 Dose: Not Given Magnesium Sulfate 4 gm/ Premix 100 mls @ 400 mls/hr IV ONETIME ONE Stop: 11/19/16 13:14 Last Admin: 11/19/16 12:50 Dose: 400 mls/hr Magnesium Sulfate (Magnesium Sulfate 40 Gm In Water 1000 Ml) 40 gm in 1,000 mls @ 50 mls[facility]hr [facility] Last Admin: 11/21/16 11:28 Dose: 40 mls/hr Lactated Ringer's (Ringers, Lactated) Confirm Administered Dose 1,000 mls @ as directed .ROUTE .[facility] ONE Stop: 11/20/16 02:00 Last Admin: 11/20/16 11:33 Dose: Not Given Lactated Ringer's (Ringers, Lactated) 1,000 mls @ 85 mls[facility]hr [facility] Last Admin: 11/21/16 13:09 Dose: 85 mls/hr Ketorolac Tromethamine (Toradol) Confirm Administered Dose 30 mg .ROUTE .[facility] ONE Stop: 11/19/16 09:50 Lidocaine HCl (Xylocaine 1%) 20 ml INJECT ONETIME ONE Stop: 11/18/16 14:47 Last Admin: 11/19/16 13:19 Dose: Not Given Lidocaine/Epinephrine (Xylocaine-Mpf 2%-Epi 1:200,000) Confirm Administered Dose 20 ml .ROUTE .STK-MED ONE Stop: 11/19/16 08:55 Meperidine HCl (Demerol) Confirm Administered Dose 50 mg .ROUTE .STK-MED ONE Stop: 11/19/16 09:37 Meperidine HCl (Demerol) 12.5 mg IVPUSH ONETIME PRN PRN Reason: Shivering Stop: 11/19/16 12:30 Metoclopramide HCl (Reglan) 10 mg IVPUSH ONETIME ONE Stop: 11/19/16 08:43 Last Admin: 11/19/16 08:52 Dose: 10 mg Metoclopramide HCl (Reglan) 10 mg IVPUSH ONETIME ONE Stop: 11/19/16 21:56 Last Admin: 11/19/16 22:01 Dose: 10 mg Misoprostol (Cytotec) 25 mcg VAG Q3H AAKASH Stop: 11/18/16 21:01 Last Admin: 11/18/16 21:54 Dose: Not Given Morphine Sulfate (Duramorph Pf) Confirm Administered Dose 10 mg .ROUTE .STK-MED ONE Stop: 11/19/16 09:35 Nalbuphine HCl (Nubain) 10 mg IVPUSH Q2H PRN PRN Reason: Pain (moderate 4-6) Ondansetron HCl (Zofran) 4 mg IVPUSH Q4H PRN PRN Reason: Nausea/Vomiting Last Admin: 11/19/16 07:23 Dose: 4 mg Ondansetron HCl (Zofran) Confirm Administered Dose 4 mg .ROUTE .STK-MED ONE Stop: 11/19/16 08:54 Ondansetron HCl (Zofran) 4 mg IVPUSH ONETIME PRN PRN Reason: Nausea/Vomiting Stop: 11/19/16 12:30 Oxytocin (Pitocin) Confirm Administered Dose 20 unit .ROUTE .STK-MED ONE Stop: 11/19/16 08:54 Sodium Bicarbonate (Sodium Bicarbonate 8.4%) Confirm Administered Dose 50 meq .ROUTE .STK-MED ONE Stop: 11/19/16 08:55 Sodium Chloride (Saline Flush) 10 ml FLUSH ASDIRECTED PRN PRN Reason: Keep Vein Open - Exam General: Reports: Alert, Oriented HEENT: Reports: Pupils Equal, Pupils Reactive, EOMI, Mucous Membr. Moist/[place] Neck: Reports: Supple Lungs: Reports: Clear to Auscultation, Normal Respiratory Effort Cardiovascular: Reports: Regular Rate, Regular Rhythm GI/Abdominal Exam: Normal Bowel Sounds, Soft, Non-Tender, No Organomegaly, No Distention, No Abnormal Bruit, No Mass, Pelvis Stable (Female) Exam: Normal External Exam, Normal Speculum Exam, Normal Bimanual Exam Back Exam: Reports: Normal Inspection, Full Range of Motion Extremities: Normal Inspection, Normal Range of Motion, Non-Tender, No Pedal Edema, Normal Capillary Refill Skin: Reports: Warm, Dry, Intact Wound/Incisions: Reports: Healing Well Neurological: Reports: No New Focal Deficit Psy/Mental Status: Reports: Alert, Normal Affect, Normal Mood *Q Meaningful Use (DIS) - VTE *Q VTE Criteria *Q: - Stroke *Q Stroke Criteria *Q: - AMI *Q AMI Criteria *Q:
[2016-11-22] MEDS: Labetalol 100 MG Tab PO SCH (08:08)
[2016-11-22] MEDS: Simethicone 80 MG Tab.Chew PO SCH (08:08)
[2016-11-22 08:32] VITALS: BP 140/80
== END 2016-11-22 10:55 | disposition home or self-care (01) | DRG 540 ==
LOC: JD.WOMH 10:00 → JD.OB 14:19 → OBSVTOIN 11-19 09:18
PROVIDERS: ADMIT Obstetrics & Gynecology; ATTEND Obstetrics & Gynecology
PROC: 3E0P7GC Introduction of Other Therapeutic Substance into Female Reproductive, Via Natural or Artificial Opening (ICD-10-PCS; principal; 2016-11-19)
PROC: 10907ZC Drainage of Amniotic Fluid, Therapeutic from Products of Conception, Via Natural or Artificial Opening (ICD-10-PCS; 2016-11-19)
PROC: 10D00Z1 Extraction of Products of Conception, Low, Open Approach (ICD-10-PCS; 2016-11-19)
DX: O13.4 Gestational [pregnancy-induced] hypertension without significant proteinuria, complicating childbirth (principal); O14.94 Unspecified pre-eclampsia, complicating childbirth; O99.824 Streptococcus B carrier state complicating childbirth; O76 Abnormality in fetal heart rate and rhythm complicating labor and delivery; Z3A.37 37 weeks gestation of pregnancy; Z37.0 Single live birth; Z88.2 Allergy status to sulfonamides
CPT/HCPCS: 01967; 01968; 36415; 81003; 82565; 83615; 83735; 84450; 84460; 84520; 84550; 85025; 94762; A9270-GY; J0290; J0690; J1200; J1885; J2175; J2270; J2405; J2590; J2765; J3010; J3475; J7030; J7120

== ENCOUNTER 2019-05-16 02:21 | Inpatient (IN) | payer BC ==
[~2019-05-16 02:21] MED LIST: Bupivacaine 0.25% 10 ML SDV ONE
[2019-05-16] MEDS ORDERED: Ondansetron 4 MG/2 ML SDV IVPUSH PRN ×2 (04:03→06:40)
[2019-05-16] MEDS ORDERED: Sodium Chloride 0.9% 10 ML Syringe FLUSH PRN (04:03)
[2019-05-16] MEDS ORDERED: Acetaminophen 325 MG Tab PO ONE (04:05)
[2019-05-16] MEDS ORDERED: Oxytocin/Lactated Ringers 10 UNIT/1,000 ML BAG IV SCH ×2 (04:15)
[2019-05-16] MEDS ORDERED: ePHEDrine 50 MG/ML SDV IVPUSH PRN (06:40)
[2019-05-16] MEDS ORDERED: fentaNYL 100 MCG/2 ML SDV EPIDUR PRN (06:40)
--- NOTE | 2019-05-16 06:43 | PCM.PREANE ---
Preanesthetic Assessment - Anesthesia/Transfusion/Family Hx Anesthesia History: Prior Anesthesia Without Reaction Family History of Anesthesia Reaction: No Transfusion History: No Prior Transfusion(s) Intubation History: Unknown - Review of Systems General: No Symptoms Pulmonary: No Symptoms Cardiovascular: No Symptoms (History of preeclampsia: on ASA) Gastrointestinal: No Symptoms (GERD), Nausea Neurological: No Symptoms Other: Reports: None (History of bicornate uterus), Easy Bruising, Sinus Problem - Physical Assessment NPO Status Date: 05/16/19 NPO Status Time: 07:30 Vital Signs: Last Vital Signs Temp 36.9 C 05/16/19 02:31 Pulse 78 05/16/19 02:31 Resp 16 05/16/19 02:31 BP 118/83 05/16/19 02:31 Pulse Ox 98 05/16/19 02:31 Height: 1.6 m Weight: 83.007 kg ASA Class: 2 Mental Status: Alert & Oriented x3 Airway Class: Mallampati = 2 Dentition: Reports: Normal Dentition, Caries Thyro-Mental Finger Breadths: 3 Mouth Opening Finger Breadths: 3 ROM/Head Extension: Full Lungs: Clear to Auscultation, Normal Respiratory Effort Cardiovascular: Regular Rate, Regular Rhythm, No Murmurs - Lab Values: Laboratory Last Values WBC 10.51 K/mm3 (3.98-10.04) H 05/16/19 04:20 RBC 4.19 M/mm3 (3.98-5.22) 05/16/19 04:20 Hgb 12.1 gm/dl (11.2-15.7) 05/16/19 04:20 Hct 37.4 % (34.1-44.9) 05/16/19 04:20 MCV 89.3 fl (79.4-94.8) 05/16/19 04:20 MCH 28.9 pg (25.6-32.2) 05/16/19 04:20 MCHC 32.4 g/dl (32.2-35.5) 05/16/19 04:20 RDW Std Deviation 42.2 fL (36.4-46.3) 05/16/19 04:20 Plt Count 185 K/mm3 (182-369) 05/16/19 04:20 MPV 11.4 fl (9.4-12.3) 05/16/19 04:20 Neut % (Auto) 78.4 % (34.0-71.1) H 05/16/19 04:20 Lymph % (Auto) 15.9 % (19.3-51.7) L 05/16/19 04:20 [place] % (Auto) 4.7 % (4.7-12.5) 05/16/19 04:20 Eos % (Auto) 0.5 (0.7-5.8) L 05/16/19 04:20 Baso % (Auto) 0.2 % (0.1-1.2) 05/16/19 04:20 Neut # (Auto) 8.25 K/mm3 (1.56-6.13) H 05/16/19 04:20 Lymph # (Auto) 1.67 K/mm3 (1.18-3.74) 05/16/19 04:20 [place] # (Auto) 0.49 K/mm3 (0.24-0.36) H 05/16/19 04:20 Eos # (Auto) 0.05 K/mm3 (0.04-0.36) 05/16/19 04:20 Baso # (Auto) 0.02 K/mm3 (0.01-0.08) 05/16/19 04:20 Urine Color Yellow (Yellow) 05/16/19 02:28 Urine Appearance Clear (Clear) 05/16/19 02:28 Urine pH 6.0 (5.0-8.0) 05/16/19 02:28 Ur Specific [place] > or = 1.030 (1.005-1.030) 05/16/19 02:28 Urine Protein Negative (Negative) 05/16/19 02:28 Urine Glucose (UA) Negative (Negative) 05/16/19 02:28 Urine Ketones Negative (Negative) 05/16/19 02:28 Urine Occult Blood Negative (Negative) 05/16/19 02:28 Urine Nitrite Negative (Negative) 05/16/19 02:28 Urine Bilirubin Negative (Negative) 05/16/19 02:28 Urine Urobilinogen 0.2 (0.2-1.0) 05/16/19 02:28 Ur Leukocyte Esterase Negative (Negative) 05/16/19 02:28 Urine RBC 0-5 /hpf (0-5) 05/16/19 02:28 Urine WBC 0-5 /hpf (0-5) 05/16/19 02:28 Ur Squamous Epith Cells 0-5 /hpf (0-5) 05/16/19 02:28 Urine Bacteria Moderate /hpf (FEW) H 05/16/19 02:28 Urine Mucus Moderate /hpf (FEW) H 05/16/19 02:28 Blood Type AB POSITIVE 05/16/19 04:20 Gel Antibody Screen Negative 05/16/19 04:20 Above labs reviewed and noted and within acceptable ranges to proceed with epidural if desired. - Allergies Allergies/Adverse Reactions: Allergies Allergy/AdvReac Type Severity Reaction Status Date / Time Sulfa (Sulfonamide Allergy Nausea Verified 05/16/19 03:13 Antibiotics) - Anesthesia Plan Pre-Op Medication Ordered: None - Acknowledgements Anesthesia Type Planned: Epidural Pt an Appropriate Candidate for the Planned Anesthesia: Yes Alternatives and Risks of Anesthesia Discussed w Pt/Guardian: Yes Pt/Guardian Understands and Agrees with Anesthesia Plan: Yes PreAnesthesia Questionnaire - Past Health History Medical/Surgical History: Denies Medical/Surgical History Cardiovascular History: Reports: None Respiratory History: Reports: None Gastrointestinal History: Reports: GERD [employer] History: Reports: Other OB/BYN History: 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 Psychiatric History: Reports: None Endocrine/Metabolic History: Reports: Obesity/BMI 30+, Vitamin D Deficiency Hematologic History: Reports: Anemia Oncologic (Cancer) History: Reports: None - Past Surgical History Female Surgical History: Reports: Breast Reduction, Other (See Below) Other Female Surgeries/Procedures: Colposcopy - SUBSTANCE USE Smoking Status *Q: Never Smoker Second Hand Smoke Exposure: No Recreational Drug Use History: No - HOME MEDS Home Medications: Home Meds No122/Iron/Folic Acid [ Multi Tablet] 1 each PO DAILY 11/18/16 [History] Aspirin 81 mg PO DAILY 05/07/19 [History] Ferrous Sulfate [Iron] 325 mg PO DAILY 05/07/19 [History] - CURRENT (IN HOUSE) MEDS Current Meds: Current Medications Ephedrine Sulfate (Ephedrine Sulfate) 5 mg IVPUSH ASDIRECTED PRN PRN Reason: Hypotension Fentanyl (Sublimaze) 100 mcg EPIDUR Q3H PRN PRN Reason: Pain Fentanyl/Bupivacaine HCl (Fentanyl/Bupivacaine/Ns 2 Mcg-0.125% 100 Ml) 100 ml EPIDUR ASDIRECTED AAKASH Lactated Ringer's (Ringers, Lactated) 1,000 mls @ 100 mls/hr IV ASDIRECTED AAKASH Oxytocin/Lactated Ringer's (Pitocin In Lr 10 Units/1,000 Ml) 10 unit in 1,000 mls @ 12 mls/hr IV TITRATE AAKASH; Protocol Oxytocin/Lactated Ringer's (Pitocin In Lr 10 Units/1,000 Ml) 10 unit in 1,000 mls @ 500 mls/hr IV .CONTINUOUS AAKASH Ondansetron HCl (Zofran) 4 mg IVPUSH Q4H PRN PRN Reason: Nausea/Vomiting Ondansetron HCl (Zofran) 4 mg IVPUSH ONETIME PRN PRN Reason: Nausea/Vomiting Sodium Chloride (Saline Flush) 10 ml FLUSH ASDIRECTED PRN PRN Reason: Keep Vein Open Discontinued Medications Acetaminophen (Tylenol) 650 mg PO NOW ONE Stop: 05/16/19 04:06 Last Admin: 05/16/19 04:47 Dose: 650 mg
[2019-05-16] MEDS: Lactated Ringers 1,000 ML IV SCH ×4 (11:57→18:01)
[2019-05-16] MEDS: Bupivacaine/fentaNYL/NS 100 ML Bag EPIDUR SCH ×2 (12:20→21:30)
--- NOTE | 2019-05-16 13:09 | PCM.LDHP ---
L&D History of Present Illness - General Date of Service: 05/16/19 Admit Problem/Dx: Patient Status Order with Admit Dx/Problem 05/16/19 02:31 Patient Status [ADT] Routine 05/16/19 04:03 Patient Status [ADT] Routine Admission Diagnosis/Problem Admission Diagnosis/Problem 05/16/19 12:54 Mila is a 33-year-old 2 para 0101 white female at 38-0/7 weeks gestational age with an JILL of 05/30/2019 who is admitted in early active labor with progressive cervical change. Source of Information: Patient History Limitations: Reports: No Limitations - History of Present Illness Introduction:: Mila is a 33-year-old 2 para 0101 white female at 38-0/7 weeks gestational age with an JILL of 05/30/2019 who is admitted in early active labor with progressive cervical change. Patient began having contractions last evening and has progressed to contractions every 3-4 minutes. They're moderate in intensity. Her cervix is changed from 1-2 cm up to 3-4 cm. Bag gage is intact but is then ruptured artificially with resultant clear amniotic fluid. Heart tones are reassuring. Patient is interested in an epidural. She has a history of previous section done for nonreassuring heart tones. She had severe preeclampsia at that time the process of trial labor after section for attempt at vaginal after section has been discussed with patient on numerous occasions. The risks, benefits, limitations, follow-up, possible need for section are all discussed detail. She appears to understand, wishes to proceed and has signed a consent for trial of labor after section and possible repeat section. Pre-C- section labs have been performed and anesthesia and surgery have been made aware of her presence in labor and delivery. She will be continuously monitored during labor. 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 Patient had last menstrual period approximately 08/23/2018. Her is based upon a last menstrual period and supported by 2 other ultrasounds done on 11/01/2018 end 01/12/2019. Patient has regular cycles and was not using any control time conception. Previous delivery included a delivery of male infant 11/19/2016 at 36 weeks gestational age after 10 hours of labor. Baby weighed 5 lbs. 12 oz. was delivered by section done for nonreassuring heart tones at [facility]. Epidural was used. Child's name is Christopher history: Patient was seen for her first visit at approximately 10 weeks gestational age. She is seen on a regular basis. Weight gain was from 149 pounds up to 182 pounds for a 33 pound gain. Her vital signs and stable fundal height growth has been appropriate. Her group B strep screen is negative. She had decided to do a repeat section if not delivered by 05/27/2019. Because she has come in in active labor she would like to try a trial labor after section. Patient has a history of enlarged thyroid but is clinically euthyroid. Her EPDS score on 01/31/2019 was 4/30. She has been on baby aspirin throughout this because of her history of preeclampsia. She has had a history of thrombocytopenia. She also has a history of vitamin D deficiency and has been on vitamin D supplementation. Patient received her flu shot on 01/31/2019. She received her diphtheria pertussis and tetanus immunization on 04/21/2019. She is rubella immune. Laboratory testing and shows blood to be AB+ with a negative [place] screen. Hemoglobin at first visit was 15.0 and platelets 207,000. She is rubella immune. RPR is nonreactive. Hepatitis B surface antigen and HIV assays were both negative. Chlamydia and gonorrhea assays were both negative. TSH was normal at 2.167 on 03/29/2019. Second trimester labs show a hemoglobin of 11.5 g or deciliter and platelets at 180,000. Test was normal at 108. Follow-up CBC on 05/03/2019 showed a hemoglobin 11.8 g deciliter and platelets are 165,000. She is group B strep negative. Allergies: 1. Self which causes nausea Medications: 1. Aspirin 81 mg daily 2. vitamins daily 3. Ferrous sulfate 325 mg by mouth daily. Past medical history: 1. Preeclampsia with last F2. Abnormal Pap smear 2010 with normal colposcopy Past surgical history: 1. Breast reduction surgery October 2015 2. Primary section on 11/19/2016 Family history: Brother with scoliosis. Son with alopecia. Mother is alive and well but on medications for blood pressure. Father is alive and well but is a type II diabetic on medications for blood pressure also. Brothers alive and well on medications for high blood pressure. Paternal grandmother at age 89 for breast cancer. Paternal grandfather in his late 80s from a brain tumor. Paternal grandmother in her late 80s from Alzheimer's disease. Paternal grandfather in his late 80s from esophageal cancer. No family history of cancer otherwise. No bleeding or blood clotting problems, anesthesia or allergy related problems, or related issues. Social history: Patient is . She lives in [place], [place]. 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 She does not use any significant amounts alcohol, drugs or tobacco. Review of systems: In general patient has no complaints. Baby is active. Skin: Negative Lungs: No infectious symptoms or shortness of breath Cardiovascular: No chest pain or exercise intolerance Breasts: No lumps, changes in size, pain, dimpling, discharge or axillary or supraclavicular concerns. GI: Negative : Negative Musculoskeletal: Negative Neurological: Negative In general the patient is well-developed, well-nourished, pleasant female of stated age in no acute distress. Last evaluation: 05/12/2019 weight was 182 with a pregravid weight 149 pounds. Height was 5 feet 3 inches. Pregravid body mass index is 25.9. heart rate is 155 bpm. Skin is warm dry without lesions. HEENT, neck and back within normal limits. Lungs are clear with good breath sounds in all lung escalona. Cardiovascular exam shows regular and rhythm without murmurs. Breasts exam is not done at this time done first pelvis and found to be normal. Patient plans to breast-feed. Abdomen is gravid with last fundal height on 05/12/2019 at 38.5 cm. Baby in a presentation.. Genital exam per digital shows cervix to be 4 cm, 95% effaced, 0 station, anterior, clear amniotic fluid, cervix is soft in consistency. Extremities and neurological exam are grossly within normal limits. Pain Score: 7 - Related Data Allergies/Adverse Reactions: Allergies Allergy/AdvReac Type Severity Reaction Status Date / Time Sulfa (Sulfonamide Allergy Nausea Verified 05/16/19 03:13 Antibiotics) Home Medications: Home Meds No122/Iron/Folic Acid [ Multi Tablet] 1 each PO DAILY 11/18/16 [History] Aspirin 81 mg PO DAILY 05/07/19 [History] Ferrous Sulfate [Iron] 325 mg PO DAILY 05/07/19 [History] Past Medical History - Past Health History Medical/Surgical History: Denies Medical/Surgical History Cardiovascular History: Reports: None Respiratory History: Reports: None Gastrointestinal History: Reports: GERD CEPHALOMETRIC TRACER History: Reports: Other OB/BYN History: 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 Psychiatric History: Reports: None Endocrine/Metabolic History: Reports: Obesity/BMI 30+, Vitamin D Deficiency Hematologic History: Reports: Anemia Oncologic (Cancer) History: Reports: None - Past Surgical History Female Surgical History: Reports: Breast Reduction, Other (See Below) Other Female Surgeries/Procedures: Colposcopy Social & Family History - Family History Family Medical History: Noncontributory - Tobacco Use Smoking Status *Q: Never Smoker Second Hand Smoke Exposure: No - Caffeine Use Caffeine Use: Reports: None - Recreational Drug Use Recreational Drug Use: No H&P Review of Systems - Review of Systems: Review Of Systems: See Below L&D Exam - Exam Exam: See Below - Vital Signs Vital Signs: Last Vital Signs Temp 36.9 C 05/16/19 02:31 Pulse 78 05/16/19 02:31 Resp 16 05/16/19 02:31 BP 118/83 05/16/19 02:31 Pulse Ox 98 05/16/19 02:31 Weight: 83.007 kg - Patient Data Lab Results Last 24 hrs: Laboratory Results - last 24 hr 05/16/19 05/16/19 05/16/19 Range/Units 02:28 04:20 04:20 WBC 10.51 H (3.98-10.04) K/mm3 RBC 4.19 (3.98-5.22) M/mm3 Hgb 12.1 (11.2-15.7) gm/dl Hct 37.4 (34.1-44.9) % MCV 89.3 (79.4-94.8) fl MCH 28.9 (25.6-32.2) pg MCHC 32.4 (32.2-35.5) g/dl RDW Std Deviation 42.2 (36.4-46.3) fL Plt Count 185 (182-369) K/mm3 MPV 11.4 (9.4-12.3) fl Neut % (Auto) 78.4 H (34.0-71.1) % Lymph % (Auto) 15.9 L (19.3-51.7) % Peach % (Auto) 4.7 (4.7-12.5) % Eos % (Auto) 0.5 L (0.7-5.8) Baso % (Auto) 0.2 (0.1-1.2) % Neut # (Auto) 8.25 H (1.56-6.13) K/mm3 Lymph # (Auto) 1.67 (1.18-3.74) K/mm3 Peach # (Auto) 0.49 H (0.24-0.36) K/mm3 Eos # (Auto) 0.05 (0.04-0.36) K/mm3 Baso # (Auto) 0.02 (0.01-0.08) K/mm3 Urine Color Yellow (Yellow) Urine Appearance Clear (Clear) Urine pH 6.0 (5.0-8.0) Ur Specific [place] > or = 1.030 (1.005-1.030) Urine Protein Negative (Negative) Urine Glucose (UA) Negative (Negative) Urine Ketones Negative (Negative) Urine Occult Blood Negative (Negative) Urine Nitrite Negative (Negative) Urine Bilirubin Negative (Negative) Urine Urobilinogen 0.2 (0.2-1.0) Ur Leukocyte Esterase Negative (Negative) Urine RBC 0-5 (0-5) /hpf Urine WBC 0-5 (0-5) /hpf Ur Squamous Epith Cells 0-5 (0-5) /hpf Urine Bacteria Moderate H (FEW) /hpf Urine Mucus Moderate H (FEW) /hpf Blood Type AB POSITIVE Gel Antibody Screen Negative Result Diagrams: 05/16/19 04:20 Problem List Initiated/Reviewed/Updated: Yes Orders Last 24hrs: Active Orders 24 hr Category Date Time Status Patient Status [ADT] Routine ADT 05/16/19 02:31 Active Patient Status [ADT] Routine ADT 05/16/19 04:03 Active Activity as Tolerated [RC] PFP Care 05/16/19 04:03 Active Communication Order [RC] ASDIRECTED Care 05/16/19 04:03 Active Heart Tones [RC] ASDIRECTED Care 05/16/19 04:03 Active Non Stress Test [RC] PER UNIT ROUTINE Care 05/16/19 02:31 Active Notify Provider [RC] ASDIRECTED Care 05/16/19 06:40 Active Notify Provider [RC] PFP Care 05/16/19 04:03 Active Notify Provider [RC] PRN Care 05/16/19 04:03 Active Oxygen Therapy [RC] ASDIRECTED Care 05/16/19 06:40 Active Peripheral IV Care [RC] . DIRECTED Care 05/16/19 04:03 Active Pulse Oximetry [RC] ASDIRECTED Care 05/16/19 06:40 Active Pump Management, Intrathecal [RC] ASDIRECTED Care 05/16/19 04:04 Active Vital Signs [RC] PER UNIT ROUTINE Care 05/16/19 02:31 Active Vital Signs [RC] PER UNIT ROUTINE Care 05/16/19 04:03 Active Regular Diet [DIET] Diet 05/16/19 Breakfast Active RAPID PLASMA REAGIN,RPR [CHEM] Routine Lab 05/16/19 04:20 Received Bupivacaine/fentaNYL/NS [fentaNYL/Bupivacaine/NS 2 MCG- Med 05/16/19 06:45 Active 0.125% 100 ML] 100 ml EPIDUR ASDIRECTED Lactated Ringers [Ringers, Lactated] 1,000 ml Med 05/16/19 04:15 Active IV ASDIRECTED Ondansetron [Zofran] Med 05/16/19 06:40 Active 4 mg IVPUSH ONETIME PRN Ondansetron [Zofran] Med 05/16/19 04:03 Active 4 mg IVPUSH Q4H PRN Oxytocin/Lactated Ringers [Pitocin in LR 10 Units/1,000 Med 05/16/19 04:15 Active ML] 10 unit in 1,000 ml IV .CONTINUOUS Oxytocin/Lactated Ringers [Pitocin in LR 10 Units/1,000 Med 05/16/19 04:15 Active ML] 10 unit in 1,000 ml IV TITRATE Sodium Chloride 0.9% [Saline Flush] Med 05/16/19 04:03 Active 10 ml FLUSH ASDIRECTED PRN ePHEDrine [ePHEDrine sulfate] Med 05/16/19 06:40 Active 5 mg IVPUSH ASDIRECTED PRN fentaNYL [Sublimaze] Med 05/16/19 06:40 Active 100 mcg EPIDUR Q3H PRN Electronic Heart Tones Ext w TOCO [WOMSER] Oth 05/16/19 04:03 Ordered Routine Electronic Heart Tones Internal [WOMSER] Per Unit Oth 05/16/19 04:03 Ordered Routine Peripheral IV Insertion Adult [OM.PC] Routine Oth 05/16/19 04:03 Ordered Resuscitation Status Routine Resus Stat 05/16/19 02:31 Ordered Medication Orders Ephedrine Sulfate (Ephedrine Sulfate) 5 mg IVPUSH ASDIRECTED PRN PRN Reason: Hypotension Fentanyl (Sublimaze) 100 mcg EPIDUR Q3H PRN PRN Reason: Pain Last Admin: 05/16/19 12:19 Dose: 100 mcg Fentanyl/Bupivacaine HCl (Fentanyl/Bupivacaine/Ns 2 Mcg-0.125% 100 Ml) 100 ml EPIDUR ASDIRECTED AAKASH Last Admin: 05/16/19 12:20 Dose: 100 ml Lactated Ringer's (Ringers, Lactated) 1,000 mls @ 100 mls/hr IV ASDIRECTED AAKASH Last Admin: 05/16/19 12:44 Dose: 999 mls/hr Infusion: 05/16/19 12:44 Dose: 999 mls/hr Admin: 05/16/19 11:57 Dose: 999 mls/hr Oxytocin/Lactated Ringer's (Pitocin In Lr 10 Units/1,000 Ml) 10 unit in 1,000 mls @ 12 mls/hr IV TITRATE AAKASH; Protocol Oxytocin/Lactated Ringer's (Pitocin In Lr 10 Units/1,000 Ml) 10 unit in 1,000 mls @ 500 mls/hr IV .CONTINUOUS AAKASH Ondansetron HCl (Zofran) 4 mg IVPUSH Q4H PRN PRN Reason: Nausea/Vomiting Last Admin: 05/16/19 11:54 Dose: 4 mg Ondansetron HCl (Zofran) 4 mg IVPUSH ONETIME PRN PRN Reason: Nausea/Vomiting Sodium Chloride (Saline Flush) 10 ml FLUSH ASDIRECTED PRN PRN Reason: Keep Vein Open Assessment/Plan Comment:: 1. 38-0/7 week intrauterine , early but progressive labor. 2.Vaginal after section she's had a previous section for nonreassuring heart tones. She had severe preeclampsia at that time. No signs of preeclampsia at this time.. Patient desires a trial of labor after section for attempted .. 3. Patient desires epidural in labor delivery 4. Patient plans to breast-feed 5. Patient is rubella immune. She has had her DPT and her flu immunization. Plan: 1. Trial of labor after section for an attempt at vaginal after section. 2. Epidural per patient desire 3. Previous labs already performed. Consent is signed for and for trial of labor after section. 4. Support breast-feeding desufflation 5. Anticipate vaginal after section.
[2019-05-17] MEDS ORDERED: Calcium Carbonate 500 MG Tab.Chew PO PRN (00:11)
--- NOTE | 2019-05-17 00:56 | PCM.SN ---
- Free Text/Narrative Note: Mila is a 33-year-old 2 para 0101 white female at 38-0/7 weeks gestational age with an JILL of 05/30/2019 who is admitted in early active labor with progressive cervical change.Mila had a previous section done with first for nonreassuring heart tones and with that had moderately severe preeclampsia. She desired a trial of labor after section for an attempt at vaginal after section. Procedure, risks, benefits, alternatives of care including a repeat , this are discussed in detail with patient prior to proceeding and consent signed. Pre-op labs were performed. Patient was continuously monitored during labor. She did have an epidural during labor for labor pain control. Patient proceeded to complete cervical dilation by approximately 2330 hrs. on 05/16/2019. She began pushing and at 0020 hours on 05/17/2019 she delivered a viable, forrest, male infant named Zuhair Reynolds weighing 3210 g (7 pounds 1.2 ounces) , measuring 20.0 inches and having an of 8 and 9. The baby delivered in a direct occiput anterior position. The baby was placed on mom's abdomen, dried in the appropriate fashion and nose and mouth were bulb suctioned. Pitocin was increased to 500 mL per hour to facilitate increase in uterine tone and decrease likelihood of bleeding. Umbilical cord blood was obtained. The umbilical cord had 3 vessels present within it. The placenta delivered in a Hurt fashion at 0032 hours. It appeared intact and complete and was discarded per patient desire. The patient sustained a second-degree perineal laceration which was repaired with 3-0 Monocryl in a routine fashion. Epidural analgesia was used for perineal anesthesia. Patient tolerated the repair well. Estimated blood loss was 100 mL. Patient is desiring to breast-feed. Condition: Good
[2019-05-17] MEDS ORDERED: Aluminum Hydroxide/Magnesium Hydroxide/Simethicone Susp 30 ML Cup PO PRN (02:06)
[2019-05-17] MEDS ORDERED: Benzocaine/Menthol 20%-0.5% Spray 56 GM Canister TOP PRN (02:06)
[2019-05-17] MEDS ORDERED: Witch Hazel Medicated Pads 40/Jar TOP PRN (02:06)
[2019-05-17] MEDS ORDERED: Acetaminophen 325 MG Tab PO PRN (02:06)
[2019-05-17] MEDS: Ibuprofen 600 MG Tab PO PRN ×4 (02:19→21:42)
[2019-05-17] MEDS: Docusate Sodium 100 MG Cap PO PRN ×2 (02:40→21:42)
--- NOTE | 2019-05-17 08:25 | PCM48HPAN ---
Post Anesthesia Note - EVALUATION WITHIN 48HRS OF ANESTHETIC Vital Signs in Normal Range: Yes Patient Participated in Evaluation: Yes Respiratory Function Stable: Yes Airway Patent: Yes Cardiovascular Function Stable: Yes Hydration Status Stable: Yes Pain Control Satisfactory: Yes Nausea and Vomiting Control Satisfactory: Yes Mental Status Recovered: Yes Vital Signs: Last Vital Signs Temp 36.9 C 05/16/19 02:31 Pulse 78 05/16/19 02:31 Resp 16 05/16/19 02:31 BP 118/83 05/16/19 02:31 Pulse Ox 98 05/16/19 02:31 - COMMENTS/OBSERVATIONS Free Text/Narrative:: no anesthesia complications noted
[2019-05-17] MEDS: Ferrous Sulfate 324 MG Tab.EC PO SCH (08:52)
[2019-05-17] MEDS: Prenatal Multivitamin with Calcium/Folic Acid/Iron Tab PO SCH (08:52)
--- NOTE | 2019-05-18 07:29 | PCM.SN ---
- Free Text/Narrative Note: day #1: Note placed retroactively 4 05/17/2019. note: Patient is doing well in the period. Minimal lochia, voiding well, ambulated without problems. Nursing without concerns. Patient is afebrile, vital signs are stable Abdomen is flat, soft, uterus is below the umbilicus and is firm and nontender. Legs are nontender. Assessment: recovery going well. Plan: Routine care. Patient be discharged home within the next 24- 48 hours.
--- NOTE | 2019-05-18 07:33 | PCM.DCSUM1 ---
Discharge Summary - Hospital Course Free Text/Narrative:: Mila is a 33-year-old 2 para 0101 white female at 38-0/7 weeks gestational age with an JILL of 05/30/2019 who is admitted in early active labor with progressive cervical change.Mila had a previous section done with first for nonreassuring heart tones and with that had moderately severe preeclampsia. She desired a trial of labor after section for an attempt at vaginal after section. Procedure, risks, benefits, alternatives of care including a repeat , this are discussed in detail with patient prior to proceeding and consent signed. Pre-op labs were performed. Patient was continuously monitored during labor. She did have an epidural during labor for labor pain control. Patient proceeded to complete cervical dilation by approximately 2330 hrs. on 05/16/2019. She began pushing and at 0020 hours on 05/17/2019 she delivered a viable, forrest, male infant named Zuhair Reynolds weighing 3210 g (7 pounds 1.2 ounces) , measuring 20.0 inches and having an of 8 and 9. The baby delivered in a direct occiput anterior position. The baby was placed on mom's abdomen, dried in the appropriate fashion and nose and mouth were bulb suctioned. Pitocin was increased to 500 mL per hour to facilitate increase in uterine tone and decrease likelihood of bleeding. Umbilical cord blood was obtained. The umbilical cord had 3 vessels present within it. The placenta delivered in a Hurt fashion at 0032 hours. It appeared intact and complete and was discarded per patient desire. The patient sustained a second-degree perineal laceration which was repaired with 3-0 Monocryl in a routine fashion. Epidural analgesia was used for perineal anesthesia. Patient tolerated the repair well. Estimated blood loss was 100 mL. Patient is desiring to breast-feed. patient is doing very well. She is happy to have done a instead of the C- section and she feels recovery is been much quicker. He has minimal lochia, voiding well and is ambulating without concerns. She desires discharge home. Condition: Good Diagnosis: Stroke: No - Discharge Data Discharge Date: 05/18/19 Discharge Disposition: Home, Self-Care 01 Condition: Good - Referral to Home Health Primary Care Physician: Bryon J Powell, MD - Patient Instructions Diet: Regular Diet as Tolerated (Nursing diet with increased calcium and calories as recommended) Activity: As Tolerated (No intercourse or tampons until bleeding resolves) Driving: May Drive Today Showering/Bathing: May Shower (May take a bath) Notify Provider of: Fever, Increased Pain, Swelling and Redness, Nausea and/or Vomiting - Discharge Plan Home Medications: Home Meds No122/Iron/Folic Acid [ Multi Tablet] 1 each PO DAILY 11/18/16 [History] Ferrous Sulfate [Iron] 325 mg PO DAILY 05/07/19 [History] Acetaminophen [Tylenol] 650 mg PO Q4H PRN tablet 05/18/19 [Rx] Ibuprofen [Motrin] 600 mg PO Q4H PRN tablet 05/18/19 [Rx] Referrals: Yon Mendez MD [Physician] - (Return to clinicDr. Mendez or Gertrudis pitts , nurse practitioner2 weeks .) - Discharge Summary/Plan Comment DC Time >30 min.: No Discharge Summary/Plan Comment: Discharge instructions: 1. Discharge home 2. Diet, activity and follow-up discussed with patient. Recommend nursing diet with increased calories and calcium. 3. Precautions given concern increased pain, bleeding, temperature, signs/ symptoms of DVT/PE. 4. Medications per home medication was printed, discussed with and given to the patient. 5. Return to clinic-Dr. Mendez or Gertrudis pitts, nurse practitioner-[facility] in 2 weeks. Diagnosis: Term -delivered Condition: Good - Patient Data Vitals - Most Recent: Last Vital Signs Temp 36.8 C 05/17/19 20:22 Pulse 79 05/18/19 05:59 Resp 15 05/17/19 15:53 BP 107/80 05/18/19 05:59 Pulse Ox 100 05/18/19 05:59 Weight - Most Recent: 83.007 kg Med Orders - Current: Current Medications Acetaminophen (Tylenol) 650 mg PO Q4H PRN PRN Reason: mild pain or fever Al Hydroxide/Mg Hydroxide (Mag-Al Plus) 60 ml PO Q8H PRN PRN Reason: Indigestion Benzocaine/Menthol (Dermoplast Pain Relief [place]) 0 gm TOP ASDIRECTED PRN PRN Reason: Perineal Comfort Measure Last Admin: 05/17/19 02:40 Dose: 1 can Docusate Sodium (Colace) 100 mg PO BID PRN PRN Reason: Constipation Last Admin: 05/17/19 21:42 Dose: 100 mg Ferrous Sulfate (Ferrous Sulfate) 324 mg PO WITHBREAKFAST [facility] Last Admin: 05/17/19 08:52 Dose: 324 mg Ibuprofen (Motrin) 600 mg PO Q4H PRN PRN Reason: Mild pain or fever Last Admin: 05/17/19 21:42 Dose: 600 mg Prenat Multivit/[place]/Iron/Folic Ac ( Plus Iron) 1 each PO DAILY [facility] Last Admin: 05/17/19 08:52 Dose: 1 each Witch Jerri (Tucks) 1 pad TOP ASDIRECTED PRN PRN Reason: Perineal Comfort Measure Last Admin: 05/17/19 02:40 Dose: 1 container Discontinued Medications Acetaminophen (Tylenol) 650 mg PO NOW ONE Stop: 05/16/19 04:06 Last Admin: 05/16/19 04:47 Dose: 650 mg Bupivacaine HCl (Sensorcaine-Mpf 0.25%) 10 ml .ROUTE .STK-MED ONE Stop: 05/16/19 00:01 Calcium Carbonate/Glycine (Tums) 1,000 mg PO Q2HR PRN PRN Reason: Indigestion Last Admin: 05/17/19 00:17 Dose: 1,000 mg Ephedrine Sulfate (Ephedrine Sulfate) 5 mg IVPUSH ASDIRECTED PRN PRN Reason: Hypotension Fentanyl (Sublimaze) 100 mcg EPIDUR Q3H PRN PRN Reason: Pain Last Admin: 05/16/19 12:19 Dose: 100 mcg Fentanyl/Bupivacaine HCl (Fentanyl/Bupivacaine/Ns 2 Mcg-0.125% 100 Ml) 100 ml EPIDUR ASDIRECTED [facility] Last Admin: 05/16/19 21:30 Dose: 100 ml Lactated Ringer's (Ringers, Lactated) 1,000 mls @ 100 mls/hr IV ASDIRECTED [facility] Last Admin: 05/16/19 18:01 Dose: 100 mls/hr Oxytocin/Lactated Ringer's (Pitocin In Lr 10 Units/1,000 Ml) 10 unit in 1,000 mls @ 12 mls/hr IV TITRATE AAKASH; Protocol Last Titration: 05/17/19 00:21 Dose: 999 mls/hr Oxytocin/Lactated Ringer's (Pitocin In Lr 10 Units/1,000 Ml) 10 unit in 1,000 mls @ 500 mls/hr IV .CONTINUOUS AAKASH Ondansetron HCl (Zofran) 4 mg IVPUSH Q4H PRN PRN Reason: Nausea/Vomiting Last Admin: 05/16/19 11:54 Dose: 4 mg Ondansetron HCl (Zofran) 4 mg IVPUSH ONETIME PRN PRN Reason: Nausea/Vomiting Sodium Chloride (Saline Flush) 10 ml FLUSH ASDIRECTED PRN PRN Reason: Keep Vein Open
[2019-05-18] MEDS: Ferrous Sulfate 324 MG Tab.EC PO SCH (08:22)
[2019-05-18] MEDS: Ibuprofen 600 MG Tab PO PRN (08:22)
[2019-05-18] MEDS: Prenatal Multivitamin with Calcium/Folic Acid/Iron Tab PO SCH (08:22)
[2019-05-18 09:37] VITALS: BP 131/83; PULSE 70
== END 2019-05-18 10:10 | disposition home or self-care (01) | DRG 560 ==
LOC: JD.OBCHECK 02:21 → JD.OB 04:35 → OBSVTOIN 05-17 00:20 → JD.OB 05-17 00:21
PROVIDERS: ADMIT Obstetrics & Gynecology; ATTEND Obstetrics & Gynecology
PROC: 10E0XZZ Delivery of Products of Conception, External Approach (ICD-10-PCS; principal; 2019-05-17)
PROC: 3E0R3BZ Introduction of Anesthetic Agent into Spinal Canal, Percutaneous Approach (ICD-10-PCS; 2019-05-17)
PROC: 0KQM0ZZ Repair Perineum Muscle, Open Approach (ICD-10-PCS; 2019-05-17)
DX: O34.211 Maternal care for low transverse scar from previous cesarean delivery (principal); O70.1 Second degree perineal laceration during delivery; Z3A.38 38 weeks gestation of pregnancy; Z37.0 Single live birth
CPT/HCPCS: 36415; 51702; 59025; 59409; 81001; 85025; 86592; 86850; 86900; 86901; A9270-GY; J2405; J2590; J3010; J3490; J7120

== ENCOUNTER 2022-04-15 06:56 | Inpatient (IN) | payer BC ==
[2022-04-15] MEDS ORDERED: Lidocaine 1% 50 ML MDV INJECT PRN (07:04)
[2022-04-15] MEDS ORDERED: Ondansetron 4 MG/2 ML SDV IVPUSH PRN (07:04)
[2022-04-15] MEDS ORDERED: Acetaminophen 325 MG Tab PO PRN ×2 (07:04→15:32)
[2022-04-15] MEDS ORDERED: Calcium Carbonate 500 MG Tab.Chew PO PRN (07:04)
[2022-04-15] MEDS ORDERED: Nalbuphine 10 MG/0.5 ML Syringe IVPUSH PRN (07:04)
[2022-04-15] MEDS ORDERED: Oxytocin/Lactated Ringers 10 UNIT/1,000 ML BAG IV SCH (07:15)
[2022-04-15] MEDS: Lactated Ringers 1,000 ML IV SCH ×2 (07:56→11:03)
[2022-04-15] MEDS: Oxytocin/Lactated Ringers 10 UNIT/1,000 ML BAG IV SCH ×2 (07:57→11:54)
[2022-04-15] MEDS ORDERED: Bupivacaine/fentaNYL/NS 100 ML Bag EPIDUR PRN (10:45)
[2022-04-15] MEDS ORDERED: ePHEDrine 50 MG/ML SDV IVPUSH PRN (10:45)
[2022-04-15] MEDS ORDERED: diphenhydrAMINE 50 MG/ML SDV IVPUSH PRN (10:45)
[2022-04-15] MEDS ORDERED: fentaNYL 100 MCG/2 ML SDV EPIDUR PRN (10:45)
[2022-04-15] MEDS ORDERED: Ropivacaine 0.2% PF 2 MG/ML 20 ML SDV ONE (14:00)
[2022-04-15] MEDS ORDERED: Witch Hazel Medicated Pads 40/Jar TOP PRN (15:32)
[2022-04-15] MEDS ORDERED: Benzocaine/Menthol 20%-0.5% Spray 78 GM Cannister TOP PRN (15:32)
[2022-04-15] MEDS: Ibuprofen 600 MG Tab PO PRN (16:18)
[2022-04-16] MEDS: Ibuprofen 600 MG Tab PO PRN (03:46)
[2022-04-16 08:00] VITALS: BP 118/87; PULSE 69
[2022-04-16] MEDS ORDERED: Prenatal Multivitamin with Calcium/Folic Acid/Iron Tab PO SCH (09:00)
== END 2022-04-16 15:40 | disposition home or self-care (01) | DRG 560 ==
LOC: JD.OB 06:56 → OBSVTOIN 14:55 → JD.OB 14:56
PROVIDERS: ADMIT Obstetrics & Gynecology; ATTEND Obstetrics & Gynecology
PROC: 10D07Z6 Extraction of Products of Conception, Vacuum, Via Natural or Artificial Opening (ICD-10-PCS; principal; 2022-04-15)
PROC: 10907ZC Drainage of Amniotic Fluid, Therapeutic from Products of Conception, Via Natural or Artificial Opening (ICD-10-PCS; 2022-04-15)
PROC: 3E0R3BZ Introduction of Anesthetic Agent into Spinal Canal, Percutaneous Approach (ICD-10-PCS; 2022-04-15)
PROC: 00HU33Z Insertion of Infusion Device into Spinal Canal, Percutaneous Approach (ICD-10-PCS; 2022-04-15)
DX: O34.211 Maternal care for low transverse scar from previous cesarean delivery (principal); Z3A.39 39 weeks gestation of pregnancy; Z37.0 Single live birth; O76 Abnormality in fetal heart rate and rhythm complicating labor and delivery; O99.02 Anemia complicating childbirth; D64.9 Anemia, unspecified; O99.214 Obesity complicating childbirth; E66.9 Obesity, unspecified
CPT/HCPCS: 01967; 36415; 51702; 59025; 59409; 85025; 86592; 86850; 86900; 86901; A9270-GY; J2590; J2795; J3490; J7120